=== PATIENT | male | born 1950 | race Two or more races ===

== ENCOUNTER 2017-02-22 22:15 | Inpatient (IN) | payer BC, OTHER ==
[~2017-02-22] VITALS: Ht 167.6 cm; Wt 87.0 kg
[~2017-02-22 22:15] MED LIST: ALLO300T PO; AMLO10TA2 PO; CITA20TA5 PO; FURO-93 PO; LISI40TA PO; LOVA40TA2 PO; METO-99 PO; TERA10CA3 PO
[2017-02-22] MEDS ORDERED: ONDANSETRON 2MG/ML, 2ML ONE (23:39)
[2017-02-22] MEDS ORDERED: MORPHINE SULFATE 4 MG/ML, 1ML ONE (23:39)
[2017-02-22] MEDS: MORPHINE SULFATE 4 MG/ML, 1ML IVPush PRN (23:42)
[2017-02-22 23:48] LABS: BASOPHILS # (AUTO) 0.02 x10^3/uL (0-0.1); BASOPHILS % (AUTO) 0 % (0-1); EOSINOPHILS # (AUTO) 0.01 x10^3/uL (0-0.4); EOSINOPHILS % (AUTO) 0 % (1-7); LYMPHOCYTES # (AUTO) 0.77 x10^3/uL (1-3.4); LYMPHOCYTES % (AUTO) 9 % (22-44); MD NO; MEAN CORPUSCULAR HEMOGLOBIN 29.4 pg (27.5-34.5); MEAN CORPUSCULAR HGB CONC 33.7 g/dL (33.2-36.2); MEAN CORPUSCULAR VOLUME 87.3 fL (81-97); MEAN PLATELET VOLUME 10.1 fL (7.4-10.4); MONOCYTES # (AUTO) 0.89 x10^3/uL (0.2-0.8); MONOCYTES % (AUTO) 10 % (2-9); NEUTROPHILS # (AUTO) 6.94 x10^3/uL (1.8-6.8); NEUTROPHILS % (AUTO) 80 % (42-75); PLATELET COUNT 186 x10^3/uL (130-400); RED BLOOD COUNT 5.67 x10^6/uL (4.38-5.82)
[2017-02-22 23:58] LABS: ALANINE AMINOTRANSFERASE 41 U/L (12-78); ALBUMIN 3.7 g/dL (3.4-5.0); ANION GAP 12 mmol/L (5-15); CALCIUM 9.2 mg/dL (8.5-10.1); CHLORIDE 101 mmol/L (98-107); CREATININE 1.06 mg/dL (0.7-1.3)
[2017-02-23] MEDS ORDERED: ONDANSETRON 2MG/ML, 2ML IVPush ONE
[2017-02-23] MEDS ORDERED: SODIUM CHLORIDE 0.9% 1,000ML IVBOLUS ONE
[2017-02-23 00:01] LABS: ALKALINE PHOSPHATASE 60 U/L (45-117); BILIRUBIN,TOTAL 0.8 mg/dL (0.2-1.0); TOTAL PROTEIN 8.2 g/dL (6.4-8.2)
[2017-02-23] MEDS ORDERED: OMNIPAQUE 350 MG/ML, 100ML BOTTLE ONE (00:23)
[2017-02-23] MEDS: SODIUM CHLORIDE 0.9% 1,000 ML IV SCH ×2 (01:00→04:35)
[2017-02-23] MEDS ORDERED: MORPHINE SULFATE 4 MG/ML, 1ML ONE (01:24)
[2017-02-23] MEDS: MORPHINE SULFATE 4 MG/ML, 1ML IVPush PRN (01:28)
[2017-02-23] MEDS ORDERED: METO25TA35 PO (01:31)
[2017-02-23 02:48] VITALS: BP 164/94
[2017-02-23] MEDS ORDERED: SODIUM CHLORIDE 0.9% 1,000 ML IV SCH (04:48)
[2017-02-23] MEDS ORDERED: ONDANSETRON 2MG/ML, 2ML IVPush PRN (05:00)
[2017-02-23] MEDS ORDERED: DOCUSATE 100 MG CAPSULE PO PRN (05:00)
[2017-02-23] MEDS ORDERED: HEPARIN 5,000 UNITS/ML, 1ML ONE (05:01)
[2017-02-23] MEDS: HEPARIN 5,000 UNITS/ML, 1ML SQ SCH ×3 (05:07→21:23)
[2017-02-23] MEDS ORDERED: hydrALAzine 20 MG/ML, 1ML IV PRN (05:30)
[2017-02-23 06:11] LABS: BASOPHILS # (AUTO) 0.03 x10^3/uL (0-0.1); BASOPHILS % (AUTO) 0 % (0-1); EOSINOPHILS # (AUTO) 0.02 x10^3/uL (0-0.4); EOSINOPHILS % (AUTO) 0 % (1-7); LYMPHOCYTES # (AUTO) 0.95 x10^3/uL (1-3.4); LYMPHOCYTES % (AUTO) 13 % (22-44); MD NO; MEAN CORPUSCULAR HEMOGLOBIN 29.5 pg (27.5-34.5); MEAN CORPUSCULAR HGB CONC 33.8 g/dL (33.2-36.2); MEAN CORPUSCULAR VOLUME 87.5 fL (81-97); MEAN PLATELET VOLUME 9.2 fL (7.4-10.4); MONOCYTES % (AUTO) 14 % (2-9); NEUTROPHILS # (AUTO) 5.32 x10^3/uL (1.8-6.8); NEUTROPHILS % (AUTO) 73 % (42-75); PLATELET COUNT 175 x10^3/uL (130-400); RED BLOOD COUNT 5.23 x10^6/uL (4.38-5.82); RED CELL DISTRIBUTION WIDTH 13.6 % (9.4-14.8)
[2017-02-23 06:28] LABS: CALCIUM 8.6 mg/dL (8.5-10.1); CHLORIDE 104 mmol/L (98-107)
[2017-02-23 06:42] LABS: HEMOGLOBIN A1C 6.4 % (4.2-6.3)
[2017-02-23 06:56] LABS: ALANINE AMINOTRANSFERASE 33 U/L (12-78); ALBUMIN 3.3 g/dL (3.4-5.0); ALKALINE PHOSPHATASE 48 U/L (45-117); ANION GAP 9 mmol/L (5-15); BILIRUBIN,TOTAL 0.6 mg/dL (0.2-1.0); CHOLESTEROL, TOTAL 121 mg/dL (140-239); CREATININE 0.86 mg/dL (0.7-1.3); HDL CHOL % 51 % (26-37); HDL CHOLESTEROL (DIRECT) 62 mg/dL (40-60); LDL CHOLESTEROL,CALCULATED 37 mg/dL (54-169); LDL/HDL RATIO 0.6 (0.5-3.0); TOTAL PROTEIN 7.1 g/dL (6.4-8.2); TRIGLYCERIDES 112 mg/dL (50-200); VLDL CHOLESTEROL 22 mg/dL (0-25)
[2017-02-23 08:00] VITALS: BP 155/90
[2017-02-23] MEDS ORDERED: METOPROLOL 1 MG/ML, 5ML IVPush PRN (09:00)
[2017-02-23] MEDS: LISINOPRIL 20 MG TABLET PO SCH (09:00)
[2017-02-23] MEDS: TERAZOSIN 5MG CAPSULE PO SCH (09:00)
[2017-02-23] MEDS: METOPROLOL TARTRATE 25 MG TABLET PO SCH (09:00)
[2017-02-23] MEDS: ALLOPURINOL 300 MG TABLET PO SCH (09:00)
[2017-02-23] MEDS: NS + 20MEQ KCL 1,000 ML IV SCH (12:52)
[2017-02-23 13:14] LABS: MICROSCOPIC NOT IND
[2017-02-23 13:16] LABS: CULTURE INDICATED? NO
[2017-02-23 15:57] VITALS: BP 169/104
[2017-02-23] MEDS: morphine SULFATE 10 MG/ML, 1ML IVPush PRN ×2 (17:44→19:58)
[2017-02-23] MEDS: LOVASTATIN 40 MG TABLET PO SCH (19:58)
[2017-02-23 20:10] VITALS: BP 167/96
[2017-02-24] MEDS: NS + 20MEQ KCL 1,000 ML IV SCH ×3 (00:28→18:27)
[2017-02-24 01:28] VITALS: BP 154/90
[2017-02-24] MEDS: HEPARIN 5,000 UNITS/ML, 1ML SQ SCH ×3 (05:10→20:48)
[2017-02-24 08:00] VITALS: BP 153/84
[2017-02-24] MEDS: TERAZOSIN 5MG CAPSULE PO SCH (08:49)
[2017-02-24] MEDS: METOPROLOL TARTRATE 25 MG TABLET PO SCH (08:49)
[2017-02-24] MEDS: LISINOPRIL 20 MG TABLET PO SCH (08:50)
[2017-02-24] MEDS: ALLOPURINOL 300 MG TABLET PO SCH (08:50)
[2017-02-24 14:00] VITALS: BP 153/80
[2017-02-24] MEDS ORDERED: NS + 20MEQ KCL 1,000 ML IV SCH (18:00)
[2017-02-24 18:50] VITALS: BP 139/86
[2017-02-24] MEDS: LOVASTATIN 40 MG TABLET PO SCH (20:48)
[2017-02-25 01:33] VITALS: BP 158/81
[2017-02-25] MEDS: NS + 20MEQ KCL 1,000 ML IV SCH ×2 (02:01→10:09)
[2017-02-25 05:21] LABS: BASOPHILS # (AUTO) 0.03 x10^3/uL (0-0.1); BASOPHILS % (AUTO) 0 % (0-1); EOSINOPHILS # (AUTO) 0.12 x10^3/uL (0-0.4); EOSINOPHILS % (AUTO) 2 % (1-7); LYMPHOCYTES # (AUTO) 1.53 x10^3/uL (1-3.4); LYMPHOCYTES % (AUTO) 23 % (22-44); MD NO; MEAN CORPUSCULAR HEMOGLOBIN 29.7 pg (27.5-34.5); MEAN CORPUSCULAR HGB CONC 33.7 g/dL (33.2-36.2); MEAN CORPUSCULAR VOLUME 88.1 fL (81-97); MEAN PLATELET VOLUME 8.9 fL (7.4-10.4); MONOCYTES # (AUTO) 0.87 x10^3/uL (0.2-0.8); MONOCYTES % (AUTO) 13 % (2-9); NEUTROPHILS # (AUTO) 4.04 x10^3/uL (1.8-6.8); NEUTROPHILS % (AUTO) 61 % (42-75); PLATELET COUNT 169 x10^3/uL (130-400); RED BLOOD COUNT 4.73 x10^6/uL (4.38-5.82); RED CELL DISTRIBUTION WIDTH 13.4 % (9.4-14.8)
[2017-02-25 05:29] LABS: CHLORIDE 113 mmol/L (98-107)
[2017-02-25 05:34] LABS: ANION GAP 6 mmol/L (5-15); CALCIUM 8.2 mg/dL (8.5-10.1); CREATININE 0.72 mg/dL (0.7-1.3)
[2017-02-25] MEDS: HEPARIN 5,000 UNITS/ML, 1ML SQ SCH ×3 (05:35→21:47)
[2017-02-25 07:24] VITALS: BP 152/89
[2017-02-25] MEDS: TERAZOSIN 5MG CAPSULE PO SCH (09:00)
[2017-02-25] MEDS: METOPROLOL TARTRATE 25 MG TABLET PO SCH (09:00)
[2017-02-25] MEDS: LISINOPRIL 20 MG TABLET PO SCH (09:00)
[2017-02-25] MEDS: ALLOPURINOL 300 MG TABLET PO SCH (09:09)
[2017-02-25 13:08] VITALS: BP 152/75
[2017-02-25 20:00] VITALS: BP 158/78
[2017-02-25] MEDS: LOVASTATIN 40 MG TABLET PO SCH (21:47)
[2017-02-26] MEDS: HEPARIN 5,000 UNITS/ML, 1ML SQ SCH (04:45)
[2017-02-26 04:48] VITALS: BP 168/79
[2017-02-26 08:28] VITALS: BP 145/80
[2017-02-26] MEDS: LISINOPRIL 20 MG TABLET PO SCH (09:35)
[2017-02-26] MEDS: ALLOPURINOL 300 MG TABLET PO SCH (09:35)
[2017-02-26] MEDS: TERAZOSIN 5MG CAPSULE PO SCH (09:35)
[2017-02-26] MEDS: METOPROLOL TARTRATE 25 MG TABLET PO SCH (09:35)
== END 2017-02-26 11:13 | disposition home or self-care (01) | DRG 390 ==
LOC: ED 02-23 01:58 → 4NOR 02-23 02:00
PROVIDERS: ADMIT Surgery; ATTEND Surgery
DX: K56.50 Intestinal adhesions [bands], unspecified as to partial versus complete obstruction (principal); I11.0 Hypertensive heart disease with heart failure; E11.65 Type 2 diabetes mellitus with hyperglycemia; I50.9 Heart failure, unspecified; E78.5 Hyperlipidemia, unspecified; Z88.8 Allergy status to other drugs, medicaments and biological substances; E87.6 Hypokalemia; M10.9 Gout, unspecified
CPT/HCPCS: 36415; 74020; 74177; 74250; 80048; 80053; 80061; 81003; 83036; 83690; 83735; 84100; 84443; 85025; 96361; 96374; 96375; J1644; J2405; J3480; Q9967; J2270; J7030